=== PATIENT | male | born 1985 | race African-American/Black ===

== ENCOUNTER 2020-06-29 11:57 | Emergency (ER) | payer OTHER, MEDICARE ==
--- NOTE | 2020-06-29 13:09 | ER Document Report ---
ED Medical Screen (RME) - General Chief Complaint: Rectal Pain Stated Complaint: RECTAL PAIN Time Seen by Provider: 06/29/20 13:03 Mode of Arrival: Ambulatory Information source: Patient Notes: 34-year-old male presented ED for complaint of rectal pain. He states he had some bleeding yesterday. He states he used Epson salt which cassius and Preparation H and the pain is actually getting worse. He states he was started having hot flashes and nausea from the pain. He states he did not feel any hemorrhoids. I did examine him shortly in the [place] with electronic specialist of [facility] there is no obvious external hemorrhoids noted. There is no obvious bleeding noted at this time. He said he did have some yesterday. He will need to be thoroughly examined the provider before discharge. I have greeted and performed a rapid initial assessment of this patient. A comprehensive ED assessment and evaluation of the patient, analysis of test results and completion of medical decision making process will be conducted by an additional ED providers. Physical Exam - Vital signs Vitals: Temp Pulse Resp BP Pulse Ox 97.9 F 80 18 136/76 H 97 06/29/20 12:38 06/29/20 12:38 06/29/20 12:38 06/29/20 12:38 06/29/20 12:38 Course - Vital Signs Vital signs: Temp Pulse Resp BP Pulse Ox 97.9 F 80 18 136/76 H 97 06/29/20 12:38 06/29/20 12:38 06/29/20 12:38 06/29/20 12:38 06/29/20 12:38
[2020-06-29 14:19] LABS: ABSOLUTE BASOPHILS # (AUTO) 0.1 10^3/uL (0.0-0.2); ABSOLUTE EOSINOPHILS # (AUTO) 0.1 10^3/uL (0.0-0.6); ABSOLUTE LYMPHOCYTES (AUTO) 1.7 10^3/uL (0.5-4.7); ABSOLUTE MONOCYTES (AUTO) 0.6 10^3/uL (0.1-1.4); BASOPHILS % (AUTO) 0.7 % (0-2); EOSINOPHILS % (AUTO) 1.5 % (0-6); HEMATOCRIT 47.4 % (37.9-51.0); HEMOGLOBIN 16.3 g/dL (13.5-17.0); LYMPHOCYTES % (AUTO) 19.8 % (13-45); MEAN CORPUSCULAR HEMOGLOBIN 29.8 pg (27.0-33.4); MEAN CORPUSCULAR HGB CONC 34.4 g/dL (32.0-36.0); MEAN CORPUSCULAR VOLUME 87 fl (80-97); PLATELET COUNT 334 10^3/uL (150-450); RED BLOOD COUNT 5.48 10^6/uL (4.35-5.55); RED CELL DISTRIBUTION WIDTH 13.9 % (11.5-14.0); TOTAL CELLS COUNTED % (AUTO) 100 %; WHITE BLOOD COUNT 8.4 10^3/uL (4.0-10.5)
[2020-06-29 14:46] LABS: ALBUMIN 4.8 g/dL (3.5-5.0); ALKALINE PHOSPHATASE 71 U/L (38-126); ANION GAP 10 (5-19); ASPARTATE AMINO TRANSFERASE 42 U/L (17-59); BILIRUBIN,DIRECT 0.2 mg/dL (0.0-0.4); BILIRUBIN,TOTAL 0.9 mg/dL (0.2-1.3); BLOOD UREA NITROGEN 14 mg/dL (7-20); CALCIUM 9.9 mg/dL (8.4-10.2); CARBON DIOXIDE 27 mmol/L (22-30); CHLORIDE 101 mmol/L (98-107); GLUCOSE 131 mg/dL (75-110); POTASSIUM 4.8 mmol/L (3.6-5.0); TOTAL PROTEIN 8.6 g/dL (6.3-8.2)
[2020-06-29] MEDS ORDERED: KETOROLAC TROMETHAMINE 60 MG/2 ML SDV IM ONE (15:00)
[2020-06-29 15:57] LABS: APPEARANCE,URINE SLIGHTLY-CLOUDY; BILIRUBIN,URINE NEGATIVE (NEGATIVE); COLOR,URINE YELLOW; GLUCOSE, URINE NEGATIVE (NEGATIVE); KETONES,URINE NEGATIVE (NEGATIVE); PROTEIN,URINE 30 mg/dL (NEGATIVE); URINE SPECIFIC GRAVITY 1.027; UROBILINOGEN,URINE NEGATIVE mg/dL (<2.0)
--- NOTE | 2020-06-29 16:52 | ER Document Report ---
ED General - General Chief Complaint: Rectal Bleeding Stated Complaint: RECTAL PAIN Time Seen by Provider: 06/29/20 13:03 Primary Care Provider: SHAILA RODRÍGUEZ [Primary Care Provider] - Follow up as needed Mode of Arrival: Ambulatory Information source: Patient - HPI Notes: Patient presents with severe rectal pain and some lower pelvic pain. He states it is made worse with bowel movements and nothing is making it better. It seemed to start yesterday. He has noticed some light blood with wiping. He states that he tried to examine himself and did not appreciate any hemorrhoids. He denies any type of rectal intercourse. He denies any previous history of similar pain. He states he has tried hot sitz bath as well as [id number] medications with no relief. No vomiting. He did have an episode where he felt sweaty and like he might pass out. The pain is no significant radiation. It is a throbbing sensation it is severe and it is intermittent. - Related Data Allergies/Adverse Reactions: No Known Allergies Allergy (Unverified 06/29/20 13:57) Past Medical History - General Information source: Patient - Social History Smoking Status: Never Smoker Chew tobacco use (# tins/day): Yes Frequency of alcohol use: None Family History: Reviewed & Not Pertinent Review of Systems - Review of Systems Constitutional: denies: Chills, Fever Cardiovascular: denies: Chest pain, Palpitations Respiratory: denies: Cough, Short of breath -: Yes All other systems reviewed and negative Physical Exam - Vital signs Vitals: Temp Pulse Resp BP Pulse Ox 97.9 F 80 18 136/76 H 97 06/29/20 12:38 06/29/20 12:38 06/29/20 12:38 06/29/20 12:38 06/29/20 12:38 Interpretation: Normal - General General appearance: Appears well, Alert - HEENT Head: Normocephalic, Atraumatic Eyes: Normal Pupils: PERRL - Respiratory Respiratory status: No respiratory distress Chest status: Nontender Breath sounds: Normal Chest palpation: Normal - Cardiovascular Rhythm: Regular Heart sounds: Normal auscultation Murmur: No - Abdominal Inspection: Normal Distension: No distension Bowel sounds: Normal Tenderness: Nontender Organomegaly: No organomegaly - Rectal Tenderness: Yes Hemorrhoids: None Prostate: Tender - Back Back: Normal, Nontender - Extremities General upper extremity: Normal inspection, Nontender, Normal color, Normal ROM, Normal temperature General lower extremity: Normal inspection, Nontender, Normal color, Normal ROM, Normal temperature, Normal weight bearing. No: Tenzin's sign - Neurological Neuro grossly intact: Yes Cognition: Normal Orientation: AAOx4 Pretty Coma Scale Eye Opening: Spontaneous [place] Coma Scale Verbal: Oriented Pretty Coma Scale Motor: Obeys Commands Pretty Coma Scale Total: 15 Speech: Normal Motor strength normal: LUE, RUE, LLE, RLE Sensory: Normal - Psychological Associated symptoms: Normal affect, Normal mood - Skin Skin Temperature: Warm Skin Moisture: Dry Skin Color: Normal Course - Re-evaluation Re-evalutation: 06/29/20 17:44 Patient presents with severe rectal pain and does have tenderness to palpation of the prostate. CT exam shows no evidence of abscess or other significant cause of pain. External exam other than tender prostate reveals no evidence to explain the pain. I do not appreciate a fissure or any type of mass. No evidence of any type of external or internal hemorrhoid. I think the most p rudent course at this time is pain medication and treatment for prostatitis. - Vital Signs Vital signs: Temp Pulse Resp BP Pulse Ox 97.9 F 80 18 136/76 H 97 06/29/20 12:38 06/29/20 12:38 06/29/20 12:38 06/29/20 12:38 06/29/20 12:38 - Laboratory Result Diagrams: 06/29/20 13:58 06/29/20 13:58 Laboratory results interpreted by me: 06/29/20 06/29/20 13:58 15:05 Glucose 131 H Total Protein 8.6 H Urine Protein 30 H - Diagnostic Test Radiology reviewed: Image reviewed, Reports reviewed Discharge - Discharge Clinical Impression: Prostatitis Qualifiers: Prostatitis type: acute Qualified Code(s): N41.0 - Acute prostatitis Condition: Stable Disposition: HOME, SELF-CARE Instructions: Prostatitis ([facility]) Additional Instructions: Please call urology as soon as possible to arrange follow-up Prescriptions: Sulfamethoxazole/Trimethoprim [Bactrim Ds Tablet] 1 each PO BID 14 Days #28 tablet Hydrocodone/Acetaminophen [Clear 5-325 mg Tablet] 1 tab PO Q6 PRN 3 Days #12 tablet PRN Reason: For Pain Forms: Return to Work Referrals: [facility] [Primary Care Provider] - Follow up in 3-5 days
--- NOTE | 2020-06-29 17:18 | RADIOLOGY REPORT (SQ) ---
EXAM DESCRIPTION: CT ABD/PELVIS WITH IV ONLY IMAGES COMPLETED DATE/TIME: 06/29/2020 5:03 pm REASON FOR STUDY: pelvic pain/rectal pain COMPARISON: None. TECHNIQUE: CT scan of the abdomen and pelvis performed using helical scanning technique with dynamic intravenous contrast injection. No oral contrast. Images reviewed with lung, soft tissue, and bone windows. Reconstructed coronal and sagittal MPR images reviewed. Delayed images for evaluation of the urinary system also acquired. All images stored on PACS. All CT scanners at this facility use dose modulation, iterative reconstruction, and/or weight based d osing when appropriate to reduce radiation dose to as low as reasonably achievable (ALARA). [facility]: Dose Right [facility]: CareDose [facility]: Dose Right [facility]: Teradose 4D [facility]: The Original SoupMan CONTRAST TYPE AND DOSE: contrast/concentration: Isovue 350.00 mmol/ml; Total Contrast Delivered: 99. 9 ml; Total Saline Delivered: 62.9 ml RENAL FUNCTION: BUN 14; creatinine 0.89 RADIATION DOSE: CT Rad equipment meets quality standard of care and radiation dose reduction techniq ues were employed. CTDIvol: 9.2 - 13.0 mGy. DLP: 1239 mGy-cm.. LIMITATIONS: None. FINDINGS: LOWER CHEST: No significant findings. No nodules or infiltrates. LIVER: Normal size. No masses. No dilated ducts. SPLEEN: Normal size. No focal lesions. PANCREAS: No masses. No significant calcifications. No adjacent inflammation or peripancreatic fluid collections. Pancreatic duct not dilated. GALLBLADDER: No identified stones by CT criteria. No inflammatory changes to suggest cholecystitis. ADRENAL GLANDS: No significant masses or asymmetry. RIGHT KIDNEY AND URETER: No solid masses. No significant calcifications. No hydronephrosis or hyd roureter. LEFT KIDNEY AND URETER: No solid masses. No significant calcifications. No hydronephrosis or hydr oureter. AORTA AND VESSELS: No aneurysm. No dissection. Renal arteries, SMA, celiac without stenosis. RETROPERITONEUM: No retroperitoneal adenopathy, hemorrhage or masses. BOWEL AND PERITONEAL CAVITY: No masses or inflammatory changes. No free fluid or peritoneal masses. APPENDIX: Normal. PELVIS: No mass. No free fluid. Normal bladder. ABDOMINAL WALL: No masses. No hernias. BONES: No significant or acute findings. OTHER: No other significant finding. IMPRESSION: NO SIGNIFICANT OR ACUTE FINDING IN THE ABDOMEN OR PELVIS ON CT SCAN WITH IV CONTRAST. TECHNICAL DOCUMENTATION: JOB ID: [id number] Quality ID # [id number]: Final reports with documentation of one or more dose reduction techniques (e.g., Au tomated exposure control, adjustment of the mA and/or kV according to patient size, use of iterative reconstruction technique) 2010 [employer]- All Rights Reserved Reading location - IP/workstation name: [email or web address]
[2020-06-29 18:14] VITALS: BP 138/60
== END 2020-06-29 18:14 | disposition home or self-care (01) ==
LOC: ER 11:57
DX: N41.0 Acute prostatitis (principal); K62.89 Other specified diseases of anus and rectum; R10.2 Pelvic and perineal pain; K62.5 Hemorrhage of anus and rectum; Z72.0 Tobacco use
CPT/HCPCS: 99285; 96372; 36415; 85025; 80053; 81001; 74177; J1885